=== PATIENT | female | born 1965 | race Caucasian/White ===

== ENCOUNTER → 2017-05-19 | Outpatient (CLI) | payer OTHER ==
[~2017-05-19] MED LIST: ALBUTEROL0.09 MG/A2 IH; ALBUTEROL0.09 MG/A2 INH; ALBUTEROL0.09 MG/AC INH; AMOXICILLIN500 MG PO; AUGMENTIN 500 M1 TAB PO; AUGMENTIN 875 M1 TAB PO; AZITHROMYCIN250 MG PO; BIAXIN500 MG PO; CIPRO500 MG PO; CIPROFLOXACIN500 MG PO; CLARITIN10 MG PO; COMBIVENT1 ARO IH; Claritin-D 10 M1 T24 PO; DAYPRO600 M1 PO; DELTASONE10 MG PO; DIFLUCAN150 MG PO; DITROPAN5 MG PO; DOXYCYCLINE HY100 M3 PO; FLOMAX0.4 MG PO; FLONASE ALLERG9.9 ML NAS; HYDROCODONE BIT1 T11 PO; LASIX PO; LEVAQUIN750 M1 PO; LISINOPRIL10 M1 PO; LISINOPRIL20 MG PO; LISINOPRIL5 MG PO; MEDROL DOSEPAK4 MG PO; MOTRIN400 MG PO; MOTRIN800 MG PO; MUCINEX ER600 MG PO; PEN-VEE K500 MG PO; PERCOCET 325 MG1 TA2 PO; PREDNICOT20 MG PO; PREDNISONE10 MG PO; PREDNISONE50 MG PO; PROVENTIL0.09 MG/AC IH; ROBITUSSIN AC 110 ML PO; TESSALON PERLE100 M1 PO; TESSALON PERLE200 MG PO; TORADOL10 MG PO; VIBRAMYCIN100 MG PO; VICODIN 5/500 505 MG PO; VICODIN 500 MG-1 TAB PO; ZESTRIL10 MG PO; ZITHROMAX Z PA250 MG PO; ZOFRAN ODT4 MG SL
== END | disposition home or self-care (01) ==
LOC: US 05-18 10:00
DX: K76.0 Fatty (change of) liver, not elsewhere classified (principal)

== ENCOUNTER 2017-10-06 14:52 | Emergency (ER) | payer OTHER ==
[~2017-10-06] VITALS: Ht 165.1 cm; Wt 73.9 kg
[2017-10-06 15:02] VITALS: BP 156/73
[2017-10-06] MEDS ORDERED: BROMFED DM COU118 M2 PO (16:05)
[2017-10-06] MEDS ORDERED: AUGMENTIN 875875 MG PO (16:05)
== END 2017-10-06 16:13 | disposition home or self-care (01) ==
LOC: ED 14:52
DX: J01.00 Acute maxillary sinusitis, unspecified (principal); F17.200 Nicotine dependence, unspecified, uncomplicated; J44.9 Chronic obstructive pulmonary disease, unspecified; I10 Essential (primary) hypertension; Z87.01 Personal history of pneumonia (recurrent); Z98.51 Tubal ligation status; Z79.899 Other long term (current) drug therapy

== ENCOUNTER → 2017-11-25 | Outpatient (CLI) | payer OTHER ==
[~2017-11-25] MED LIST changes: +AUGMENTIN 875875 MG PO; +BROMFED DM COU118 M2 PO; +NAPROSYN500 MG PO
--- NOTE | ~2017-11-25 | PF ---
[place], [place] PULMONARY FUNCTION TEST [facility]: [id number] UNIT #: [id number] ROOM: DOCTOR: MORIAH ROJAS MD,GABINO BIRTHDATE: [birth year] DOS: 11/26/2017 ORDERED BY: Dr. Mary Mcdermott. HISTORY: The patient recorded 52-year-old female, height of 65 inches, weight of 170 pounds, BMI 28.3. For assessment and diagnosis of COPD, the patient reported symptoms of coughing, wheezing and shortness of breath with exertion. Tobacco use noted actively on pack of cigarettes per day for the past 33 years. SPIROMETRY: FVC recorded 1.82 liters, 50% predicted value, moderate to severely decreased. FEV1 was recorded as 0.92 liters at 32% predicted value, severely decreased. Postbronchodilator FEV1/FVC was recorded as 51%, minimal improvement postbronchodilator. Normal clinical significance. The flow volume loop was suggestive of severe obstructive lung disease. The patient's spirometry, the lung volume noted as total lung capacity 79%, mildly decreased. Residual volume 116%, total thoracic gas volume 87%. Lung volumes suggest a mild restrictive airway pattern, but the lung diffusion recorded 53% without correction of carbon monoxide and hemoglobin values. The patient's airway resistance and passive conductance were noted abnormal without any improvement postbronchodilator test. FINAL IMPRESSION: Test was suggestive of evidence of severe COPD. Mild restrictive lung disease, the patient was noted of unclear etiology. Clinical correlation would be advised to obtain the patient's history and radiology data. GABINO MAJOR MD CM:PFREPORT:PULMONARY FUNCTION TEST [id number] GABINO ROJAS MD
== END | disposition home or self-care (01) ==
LOC: CP 08:26
DX: J44.9 Chronic obstructive pulmonary disease, unspecified (principal)

== ENCOUNTER 2017-12-02 08:01 | Emergency (ER) | payer OTHER ==
[~2017-12-02] VITALS: Ht 165.1 cm; Wt 77.1 kg
[~2017-12-02 08:01] MED LIST changes: -NAPROSYN500 MG PO
[2017-12-02 08:13] VITALS: BP 180/90
[2017-12-02] MEDS ORDERED: NAPROSYN500 MG PO (09:03)
== END 2017-12-02 10:05 | disposition home or self-care (01) ==
LOC: ED 08:01
DX: S46.912A Strain of unspecified muscle, fascia and tendon at shoulder and upper arm level, left arm, initial encounter (principal); F17.200 Nicotine dependence, unspecified, uncomplicated; J44.9 Chronic obstructive pulmonary disease, unspecified; I10 Essential (primary) hypertension; Z98.51 Tubal ligation status; Z98.890 Other specified postprocedural states; Z79.899 Other long term (current) drug therapy; X50.1XXA Overexertion from prolonged static or awkward postures, initial encounter; Y93.89 Activity, other specified; Y92.89 Other specified places as the place of occurrence of the external cause; Y99.9 Unspecified external cause status

== ENCOUNTER → 2018-01-22 | Outpatient (CLI) | payer OTHER ==
[~2018-01-22] MED LIST changes: +NAPROSYN500 MG PO
[2018-01-23 08:13] LABS: ALPHA-1-ANTITRYPSIN, SERUM 150 mg/dL (90-200)
== END | disposition home or self-care (01) ==
LOC: LAB 07:56
PROVIDERS: Internal Medicine Critical Care Medicine
DX: J44.9 Chronic obstructive pulmonary disease, unspecified (principal)

== ENCOUNTER → 2019-04-21 | Outpatient (CLI) | payer SELFPAY ==
[~2019-04-21] MED LIST changes: +PRINIVIL10 MG PO; +PROVENTIL HFA6.7 GM INH; +SPIRIVA -- 3018 MCG INH
== END | disposition home or self-care (01) ==
LOC: RESCLI 00:20
DX: J43.9 Emphysema, unspecified (principal); E66.3 Overweight; D75.1 Secondary polycythemia; E55.9 Vitamin D deficiency, unspecified; I10 Essential (primary) hypertension; J30.2 Other seasonal allergic rhinitis; Z72.0 Tobacco use; Z71.6 Tobacco abuse counseling; Z88.8 Allergy status to other drugs, medicaments and biological substances; Z79.899 Other long term (current) drug therapy

== ENCOUNTER → 2019-05-12 | Outpatient (CLI) | payer SELFPAY | END | disposition home or self-care (01) | LOC: MAMMO 09:30 | DX: N64.4 Mastodynia (principal); Z85.3 Personal history of malignant neoplasm of breast ==

== ENCOUNTER 2019-08-15 13:51 | Emergency (ER) | payer SELFPAY ==
[~2019-08-15] VITALS: Ht 165.1 cm; Wt 74.8 kg
[2019-08-15 15:39] VITALS: BP 178/88
[2019-08-15] MEDS ORDERED: MEDROL DOSEPAK4 MG PO ×2 (15:55→16:42)
[2019-08-15] MEDS ORDERED: PROAIR HFA8.5 GM INH ×2 (15:55→16:42)
[2019-08-15] MEDS ORDERED: ZITHROMAX250 MG PO ×2 (15:55→16:42)
== END 2019-08-15 16:12 | disposition home or self-care (01) ==
LOC: ED 13:51
DX: J44.9 Chronic obstructive pulmonary disease, unspecified (principal); F17.200 Nicotine dependence, unspecified, uncomplicated; I10 Essential (primary) hypertension; Z98.51 Tubal ligation status; Z98.890 Other specified postprocedural states; Z79.899 Other long term (current) drug therapy

== ENCOUNTER → 2019-09-07 | Outpatient (CLI) | payer SELFPAY ==
[~2019-09-07] MED LIST changes: +PROAIR HFA8.5 GM INH; +ZITHROMAX250 MG PO
== END | disposition home or self-care (01) ==
LOC: RESCLI 00:42
DX: J43.9 Emphysema, unspecified (principal); J30.2 Other seasonal allergic rhinitis; J40 Bronchitis, not specified as acute or chronic; I10 Essential (primary) hypertension; R92.8 Other abnormal and inconclusive findings on diagnostic imaging of breast; Z53.20 Procedure and treatment not carried out because of patient's decision for unspecified reasons; Z79.899 Other long term (current) drug therapy; Z88.8 Allergy status to other drugs, medicaments and biological substances

== ENCOUNTER → 2024-01-27 | Outpatient (CLI) | payer MEDICARE | END | disposition home or self-care (01) | LOC: US 01-07 10:30 → MAMMO 04:34 → US 08:00 | PROVIDERS: ATTEND Nurse Practitioner | DX: Z12.31 Encounter for screening mammogram for malignant neoplasm of breast (principal); Z90.12 Acquired absence of left breast and nipple ==

== ENCOUNTER 2024-08-12 09:08 | Emergency (ER) | payer MEDICARE ==
[~2024-08-12] VITALS: Ht 165.1 cm; Wt 68.5 kg
[2024-08-12 09:14] VITALS: BP 175/69
[2024-08-12] MEDS ORDERED: Acetaminophen/Oxycodone 5 MG/325 MG TABLET PO ONE (09:20)
[2024-08-12] MEDS ORDERED: Amoxicillin/Clavulanate Pota 875 MG TAB PO ONE (09:20)
[2024-08-12] MEDS ORDERED: MELOXICAM15 MG PO (09:24)
[2024-08-12] MEDS ORDERED: AMOX-CLAV 875-1 EACH PO (09:24)
== END 2024-08-12 09:27 | disposition home or self-care (01) ==
LOC: ED 09:08
DX: K04.7 Periapical abscess without sinus (principal); J44.9 Chronic obstructive pulmonary disease, unspecified; F17.210 Nicotine dependence, cigarettes, uncomplicated; Z79.899 Other long term (current) drug therapy; Z98.51 Tubal ligation status

== ENCOUNTER → 2024-12-06 | Outpatient (CLI) | payer MEDICARE ==
[~2024-12-06] MED LIST changes: +AMOX-CLAV 875-1 EACH PO; +MELOXICAM15 MG PO; +SINCALIDE 1.3 MCG in SODIUM CHLORIDE 0.9% 50 ML IV ONE
== END | disposition home or self-care (01) ==
LOC: NM 11-16 13:00
PROVIDERS: ATTEND Nurse Practitioner
DX: R10.11 Right upper quadrant pain (principal)